=== PATIENT | female | born 1985 | race Caucasian/White ===

== ENCOUNTER → 2017-02-27 | Outpatient (CLI) | payer BC | END | disposition home or self-care (01) | LOC: RAD.S 08:07 | DX: R10.11 Right upper quadrant pain (principal); K80.20 Calculus of gallbladder without cholecystitis without obstruction ==

== ENCOUNTER 2017-03-17 08:25 | Day surgery (SDC) | payer BC ==
[~2017-03-17] VITALS: Ht 167.6 cm; Wt 98.7 kg
--- NOTE | 2017-04-14 07:03 | OR ---
ADMIT: 03/17/2017 RM/LOC: [facility] MR#: [id number] [address] [id number] NATHALY HAN [address] [place] [address] Operative/Delivery Room Report SEX: F AGE: 31 : 1985 SURGERY DATE: 03/17/2017 SURGEON: Salazar Urias MD PREOPERATIVE DIAGNOSES: Acute cholecystitis, cholelithiasis. POSTOPERATIVE DIAGNOSES: Acute cholecystitis, cholelithiasis. PROCEDURE PERFORMED: Laparoscopic cholecystectomy. FRONT END JAVA DEVELOPER: VIRGIE Mendoza. ANESTHESIA: General endotracheal with the addition of Marcaine in the wounds postprocedure. ESTIMATED BLOOD LOSS: Less than 10 mL. DESCRIPTION OF PROCEDURE: After appropriate informed consent was obtained, the patient was brought to the operating room. General endotracheal anesthesia was induced. The patient's abdomen was prepped and draped in sterile fashion. A small subxiphoid incision was created. This was carried deep with blunt dissection, since she was I did not open, cutdown to gain access into the abdomen. A curved clamp was bluntly placed through the fascia and the peritoneum. The 11 mm trocar was then bluntly placed and the abdomen was insufflated with CO2. Camera was introduced. The abdomen surveyed. There were no intraabdominal adhesions. The uterus was identified and appeared normal. A small infraumbilical incision was then created. A 5 mm trocar was placed under direct vision with laparoscope to avoid any injury to the uterus. Camera was then repositioned to the umbilical port site and two additional 5 mm ports were placed in the right upper quadrant. The gallbladder was grasped, retracted up over the edge of liver. The gallbladder was distended and obviously had some stones within it. The infundibulum was grasped, retracted laterally. Cystic duct was skeletonized out first. This was a very small caliber short cystic duct. The cystic artery was also identified and dissected free. Once I was satisfied with the landmarks, three clips were placed on cystic duct and three clips were placed on cystic artery. ADMIT: 03/17/2017 RM/LOC: [facility] MR#: [id number] [facility] [address] [place], [place] [id number] EMELYNATHALY Zaira [address] [place] [address] Operative/Delivery Room Report SEX: F AGE: 31 : 1985 Both the duct and artery were cut between clips. The gallbladder was then reflected off the liver bed using hook electrocautery. With the gallbladder freed up, it was placed in EndoCatch bag and brought out through the subxiphoid port site. The port was reintroduced. The right upper quadrant was copiously irrigated and suctioned out. Everything appeared hemostatic. All the wounds were infiltrated with Marcaine. The subxiphoid fascial defect was closed with a [id number] 0 Vicryl suture. The abdomen was next desufflated, ports removed, skin closed with 4-0 Monocryl in the subcuticular layer. Sterile dressings were applied. Quinn Fish assisted in this entire procedure. His help was necessary for retraction and camera driving. Salazar Urias MD/ mayte JOB #: [id number] CC: Salazar Urias, Attending Physician Mackenzie Kc, Family Physician Mackenzie Kc MD
== END 2017-03-17 15:38 | disposition home or self-care (01) ==
LOC: SSS 08:25
PROC: 0FT44ZZ Resection of Gallbladder, Percutaneous Endoscopic Approach (ICD-10-PCS; principal; 2017-03-17)
DX: K80.10 Calculus of gallbladder with chronic cholecystitis without obstruction (principal); E66.9 Obesity, unspecified; Z79.899 Other long term (current) drug therapy; Z98.890 Other specified postprocedural states; Z83.3 Family history of diabetes mellitus; Z80.0 Family history of malignant neoplasm of digestive organs